=== PATIENT | female | born 1950 ===

== ENCOUNTER 2020-06-03 08:56 | Day surgery (SDC) | payer MEDICARE, BC ==
[~2020-06-03] VITALS: Ht 157.5 cm; Wt 45.5 kg
[2020-06-03 09:51] VITALS: BP 151/67; PULSE 93; TEMP 97.8
[2020-06-03] MEDS ORDERED: COREG 3.123.125 MG/T PO (10:02)
[2020-06-03] MEDS ORDERED: 00186-0370-20 IH (10:02)
[2020-06-03] MEDS ORDERED: SYNTHROID0.075 MG/T PO (10:02)
[2020-06-03] MEDS ORDERED: ASPIRIN E.C. 8181 MG PO (10:03)
[2020-06-03] MEDS ORDERED: RT SPIRIVA18 MCG IH (10:04)
--- NOTE | 2020-06-03 10:06 | NUR ---
TO AT 0922 PER WC. WEAK ON TRANSFERS. CALL LIGHT IN REACH AT BEDSIDE.
[2020-06-03 13:45] VITALS: BP 140/48; PULSE 88; TEMP 97.6
[2020-06-03 14:10] VITALS: BP 138/52; PULSE 90
--- NOTE | 2020-06-03 14:10 | NUR ---
TO RM 8 PER CART FROM PACU. ALERT ORIENTED X3, WHISPERING TO AND STAFF. ATTEMPTING TO CLEAR THROAT. SUCTIONED SCANT AMOUNT. C/O "SOME PAIN" BUT STATED IT WAS TOLERABLE AND DENIED ANY PAIN MEDICATION.
--- NOTE | 2020-06-03 14:25 | NUR ---
RECEIVED GRAPE JUICE. SUCTIONED SELF AFTER TAKING A SIP. STATED SHE JUST HAS TROUBLE CLEARING HER THROAT.
[2020-06-03 14:40] VITALS: BP 126/44; PULSE 87
--- NOTE | 2020-06-03 14:40 | NUR ---
HAD QUESTIONS CONCERNING HAVING SUCTION AT HOME. OFFICE CALLED TO SEE CONCERNING FOLLOW UP AND THE QUESTIONS THE ABOUT SUCTION.
[2020-06-03 14:55] VITALS: BP 119/97; PULSE 88
--- NOTE | 2020-06-03 14:55 | NUR ---
OCCASIONALLY SUCTIONING SELF SCANT AMOUNTS. PATIENT STATED SHE DIDN'T WANT ANYTHING TO ELSE TO EAT OR DRINK.
[2020-06-03 15:05] VITALS: BP 118/44; PULSE 87
--- NOTE | 2020-06-03 15:05 | NUR ---
STATED SHE ONLY URINATES ABOUT ONCE A DAY AND SO IT WILL BE A WHILE BEFORE SHE VOIDS AGAIN.
--- NOTE | 2020-06-03 15:30 | NUR ---
RECEIVED DISCHARGE INSTRUCTIONS AND VERBALIZED UNDERSTANDING. DISCONTINUED IV AND INT.
--- NOTE | 2020-06-03 15:45 | NUR ---
DISCHARGED PER WC BY NURSING STAFF TO PRIVATE CAR IN CARE OF
--- NOTE | 2020-06-03 15:50 | NUR ---
PATIENT DISCHARGED WEARING OWN O2 AT 2L PER NC.
--- NOTE | 2020-06-03 16:15 | NUR ---
AFTER PATIENT DISCHARGED OFFICE RETURNED PHONE CALL. PATIENT TO SEE DR SHANE IN [place] ON Jun AT 0930 I CALLED AND LEFT MESSAGE ON PATIENT HOME PHONE OF THE APPOINTMENT WITH DR SHANE.
== END 2020-06-03 16:22 | disposition home or self-care (01) ==
LOC: SDCO 08:56
DX: C84 Mature T/NK-cell lymphomas (principal); I10 Essential (primary) hypertension; J44.9 Chronic obstructive pulmonary disease, unspecified; E03.9 Hypothyroidism, unspecified; Z87.891 Personal history of nicotine dependence; Z20.828 Contact with and (suspected) exposure to other viral communicable diseases; Z79.82 Long term (current) use of aspirin; Z79.899 Other long term (current) drug therapy; Z79.890 Hormone replacement therapy; Z79.1 Long term (current) use of non-steroidal anti-inflammatories (NSAID)
CPT/HCPCS: J0330; J1100; J2405; J2704; J3010; J7120